=== PATIENT | female | born 1960 | race Caucasian/White ===

== ENCOUNTER → 2017-10-29 08:45 | Outpatient (CLI) | payer MEDICARE, SELFPAY ==
--- NOTE | 2017-10-29 08:55 | US_ITS ---
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 Now with left-sided thyroid nodules ITS.REASON: LT THYROID NEOPLASM ORDERING PHYSICIAN: Catracho Bains MD PATIENT AGE: 57 years COMPARISON: None Prebiopsy ultrasound: There are no outside films available for comparison. Outside report however suggested a 2.8 cm nodule in the upper pole and a 2 cm nodule in the lower pole. However, on today's ultrasound the dominant nodule appears to be in the lower pole measuring 2.8 x 2.3 cm with a smaller nodule in the upper pole at 2 cm. It was elected to do fine-needle aspiration of both nodules. They were labeled accordingly. Both nodules were heterogeneous in echogenicity containing some small cystic areas. Lower pole nodule: TECHNIQUE: Following obtaining informed consent, using aseptic technique and local anesthesia with buffered lidocaine, fine-needle aspiration was performed of the nodule of interest using sonographic guidance. 2 passes were made into the nodule with a 25-gauge needle. Specimen was given to cytology. Upper pole nodule: TECHNIQUE: Following obtaining informed consent, using aseptic technique and local anesthesia with buffered lidocaine, fine-needle aspiration was performed of the nodule of interest using sonographic guidance. 2 passes were made into the nodule with a 25-gauge needle. Specimen was given to cytology The patient tolerated the procedure well without evidence of immediate complications and left the ultrasound suite in stable condition. CYTOLOGY:Pending IMPRESSION: Uneventful ultrasound-guided fine needle aspiration of both upper and lower pole nodules of the left lobe of the thyroid gland. Cytology pending
== END ==
PROVIDERS: Visit Provider Otolaryngology
DX: D34 Benign neoplasm of thyroid gland (principal)
CPT/HCPCS: 10022; 76536; 76942; 88173